=== PATIENT | male | born 1970 | race Caucasian/White ===

== ENCOUNTER 2017-01-26 10:52 | Emergency (ER) | payer BC ==
[~2017-01-26] VITALS: Ht 180.3 cm; Wt 98.0 kg
[2017-01-26 11:45] VITALS: BP 134/61; PULSE 93; RESP 18; TEMP 98.4; O2SAT 94
[2017-01-26] MEDS ORDERED: INHAILER (11:59)
--- NOTE | 2017-01-26 12:11 | PD ---
HPI Chief Complaint: Respiratory Symptoms Time Seen by Provider: 11:49 Travel History International Travel<30 days: No Contact w/Intl Traveler<30days: No Traveled to known affect area: No History of Present Illness HPI This 46-year-old male is complaining of cough for the past week and a half. At times he feels short of breath. He has not noted any fever. He does smoke cigarettes. He has had episodes of coughing which have led to vomiting. He works at [employer] and wears a respirator at work [facility] Past Medical History Asthma: Yes Tetanus Vaccination: < 5 Years Influenza Vaccination: Yes ?: Not Past Surgical History Abdominal Surgery: Yes (UMBILICAL HERNIA REPAIR) Cholecystectomy: Yes Neurologic Surgery: Yes (BRAIN BLEED/SKULL FX) Social History Alcohol Use: Yes (WEEKEND) Tobacco Use: Yes (1 PPD) Substance Use: No Allergies-Medications (Allergen,Severity, Reaction): Coded Allergies: No Known Allergies (Unverified , 01/26/17) Reported Meds & Prescriptions Reported Meds & Active Scripts Active Reported [Inhailer] Review of Systems General / Constitutional: No: Fever, Chills Eyes: No: Diploplia, Blurred Vision HENT: No: Headaches Cardiovascular: No: Chest Pain or Discomfort, Palpitations Respiratory: Positive: Cough, Shortness of Breath Gastrointestinal: Positive: Vomiting, No: Diarrhea Genitourinary: No: Urgency, Frequency Skin: No Rash, No Itching Neurologic: No: Weakness Physical Exam Narrative GENERAL: Well-developed male SKIN: Focused skin assessment warm/dry. HEAD: Atraumatic. Normocephalic. EYES: Pupils equal and round. No scleral icterus. No injection or drainage. ENT: No nasal bleeding or discharge. Mucous membranes pink and moist. NECK: Trachea midline. No JVD. CARDIOVASCULAR: Regular rate and rhythm. No murmur appreciated. RESPIRATORY: No accessory muscle use. There are occasional rhonchi and wheezes Breath sounds equal bilaterally. He is having paroxysms of severe cough GASTROINTESTINAL: Abdomen soft, non-tender, nondistended. Hepatic and splenic margins not palpable. MUSCULOSKELETAL: No obvious deformities. No clubbing. No cyanosis. No edema. NEUROLOGICAL: Awake and alert. No obvious cranial nerve deficits. Motor grossly within normal limits. Normal speech. PSYCHIATRIC: Appropriate mood and affect; insight and judgment normal. Data Data Last Documented VS Vital Signs Date Time Temp Pulse Resp B/P (MAP) Pulse Ox O2 Delivery O2 Flow Rate FiO2 01/26/17 11:55 90 96 Room Air 01/26/17 11:45 98.4 18 134/61 (85) Orders Orders Chest, Pa & Lat (01/26/17 12:08) Albuterol-Ipratropium Neb (Duoneb Neb) (01/26/17 12:15) MDM Medical Decision Making Medical Screen Exam Complete: Yes Emergency Medical Condition: Yes Medical Record Reviewed: Yes Differential Diagnosis Differential includes acute bronchitis, COPD, pneumonia Narrative Course He was given a nebulizer and this seemed to provide some relief of his cough. Chest x-ray is read as negative. The released on amoxicillin and Tessalon Perles. Impression acute bronchitis. Recommended that he try to stop smoking view of his occupational exposure. Diagnosis Primary Impression: Acute bronchitis Qualified Codes: J20.9 - Acute bronchitis, unspecified Scripts Benzonatate (Tessalon Perles) 100 Mg Cap 200 MG PO TID Y for COUGH, #20 CAP 0 Refills Prov: Sumeet Chen MD 01/26/17 Amoxicillin (Amoxicillin) 500 Mg Cap 500 MG PO TID for Infection for 10 Days, CAP 0 Refills Prov: Sumeet Chen MD 01/26/17 Disposition: 01 DISCHARGE HOME Condition: Stable Sumeet Chen MD Jan 26, 2017 12:10
[2017-01-26] MEDS ORDERED: RESP: ALBUTEROL 2.5 MG/IPRATROPIUM 0.5 MG NEB (SCH) NEB ONE (12:15)
--- NOTE | 2017-01-26 13:33 | RADRPT ---
EXAM DATE/TIME: 01/26/2017 12:57 [facility] COMPARISON: No previous studies available for comparison. INDICATIONS : Cough. Difficulty breathing for a week and a half. MEDICAL HISTORY : Skull fracture w/ cranial bleed. Asthma. Smoker SURGICAL HISTORY : Cholecystectomy. Umbilical hernia repair. Lumbar spine. ENCOUNTER: Initial ACUITY: 2 weeks PAIN SCORE: 0/10 LOCATION: chest FINDINGS: PA and lateral views of the chest demonstrate the lungs to be symmetrically aerated without evidence of mass, infiltrate or effusion. The cardiomediastinal contours are unremarkable. Osseous structure s are intact. CONCLUSION: No acute cardiopulmonary disease. Miles Cazares MD on January 26, 2017 at 13:31 Board Certified Radiologist. This report was verified electronically.
[2017-01-26] MEDS ORDERED: AMOX500C PO (13:40)
[2017-01-26] MEDS ORDERED: BENZ100 PO (13:40)
[2017-01-26 14:04] VITALS: BP 145/79
== END 2017-01-26 14:09 | disposition home or self-care (01) ==
LOC: PHED 10:52
DX: J20.9 Acute bronchitis, unspecified (principal); F17.210 Nicotine dependence, cigarettes, uncomplicated
CPT/HCPCS: 71020; 94640; 94664; 99284

== ENCOUNTER 2017-06-22 18:20 | Emergency (ER) | payer OTHER, BC ==
[~2017-06-22] VITALS: Ht 180.3 cm; Wt 96.5 kg
[~2017-06-22 18:20] MED LIST: AMOX500C PO; BENZ100 PO; INHAILER
[2017-06-22 18:22] VITALS: BP 151/117; PULSE 77; RESP 18; TEMP 99.4; O2SAT 99
[2017-06-22] MEDS ORDERED: MORPHINE SULFATE 4 MG/ML INJ IM ONE (18:45)
[2017-06-22] MEDS ORDERED: ONDANSETRON HCL 4 MG/2 ML VIAL IM ONE (18:45)
--- NOTE | 2017-06-22 18:46 | PD ---
HPI Chief Complaint: Pain: Acute or Chronic Time Seen by Provider: 18:34 Travel History International Travel<30 days: No Contact w/Intl Traveler<30days: No Traveled to known affect area: No History of Present Illness HPI This patient complains of pain in his right groin. He had a slip and fall injury at work which caused the pain. Duration 5 hours. Severity is moderate. Worse when he moves his right leg. He is ambulatory. 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 There is no direct trauma involved. PFSH Past Medical History Asthma: Yes Tetanus Vaccination: < 5 Years Influenza Vaccination: Yes ?: Not Past Surgical History Abdominal Surgery: Yes (UMBILICAL HERNIA REPAIR) Cholecystectomy: Yes Neurologic Surgery: Yes (BRAIN BLEED/SKULL FX) Social History Alcohol Use: Yes (WEEKENDS) Tobacco Use: Yes (1 PPD) Substance Use: No Allergies-Medications (Allergen,Severity, Reaction): Coded Allergies: No Known Allergies (Verified Allergy, Unknown, 06/22/17) Reported Meds & Prescriptions Reported Meds & Active Scripts Active Review of Systems General / Constitutional: No: Fever Eyes: No: Visual changes HENT: No: Headaches Cardiovascular: No: Chest Pain or Discomfort Respiratory: No: Shortness of Breath Gastrointestinal: No: Abdominal Pain Genitourinary: No: Dysuria Musculoskeletal: Positive: Pain Skin: No Rash Neurologic: No: Weakness Psychiatric: No: Depression Endocrine: No: Polydipsia Hematologic/Lymphatic: No: Easy Bruising Physical Exam Narrative GENERAL: Well-nourished, well-developed patient with right groin pain . SKIN: Focused skin assessment reveals no rash and nodules. Skin is Warm and dry. HEAD: Atraumatic. Normocephalic. EYES: Pupils equal and round. No scleral icterus. No injection or drainage. ENT: No nasal bleeding or discharge. Mucous membranes pink and moist. NECK: Trachea midline. No JVD. CARDIOVASCULAR: Regular rate and rhythm. No murmur appreciated. RESPIRATORY: No accessory muscle use. Clear to auscultation. Breath sounds equal bilaterally. GASTROINTESTINAL: Abdomen soft, non-tender, nondistended. Hepatic and splenic margins not palpable. MUSCULOSKELETAL: No obvious deformities. No clubbing. No cyanosis. No edema. NEUROLOGICAL: Awake and alert. No obvious cranial nerve deficits. Motor grossly within normal limits. Normal speech. PSYCHIATRIC: Appropriate mood and affect; insight and judgment normal. Groin: There is no bruising or swelling or erythema or warmth. The mid right inguinal ligament areas tender. There is no hernia noted. exam is normal without hernia Data Data Last Documented VS Vital Signs Date Time Temp Pulse Resp B/P (MAP) Pulse Ox O2 Delivery O2 Flow Rate FiO2 06/22/17 19:00 73 16 134/79 (97) 96 Room Air 06/22/17 18:22 99.4 Orders Orders Pelvis, Ap Only (Routine) (06/22/17 ) Ondansetron Inj (Zofran Inj) (06/22/17 18:45) Morphine Inj (Morphine Inj) (06/22/17 18:45) MDM Medical Decision Making Medical Screen Exam Complete: Yes Emergency Medical Condition: Yes Medical Record Reviewed: Yes Differential Diagnosis Groin strain, inguinal ligament tear, hernia, pelvic fracture Narrative Course I have reviewed the patient's electronic medical record. I reviewed his pelvis x-ray is negative for fracture I gave him injection of morphine and Zofran for symptom relief No hernia found on exam Wrote him a dozen tramadol Recommend Worker's Comp. follow-up Diagnosis Primary Impression: Strain of muscle of right groin region Additional Instructions: The patient was advised to follow up with their Worker's Comp. physician and return if they worsen. The patient was warned about potential sedation for the medications they will receive on prescription. Med/Other Pt SpecificInfo: Prescription(s) given Scripts Tramadol (Tramadol) 50 Mg Tab 50 MG PO Q6H Y for PAIN, #12 TAB 0 Refills Prov: Matt Montano MD 06/22/17 Disposition: 01 DISCHARGE HOME Condition: Stable Matt Montano MD Jun 22, 2017 18:46
[2017-06-22 19:00] VITALS: BP 134/79; PULSE 73; RESP 16; O2SAT 96
[2017-06-22] MEDS ORDERED: TRAM50TA PO (19:45)
[2017-06-22 20:00] VITALS: BP 145/95; PULSE 84; RESP 16; O2SAT 95
--- NOTE | 2017-06-22 20:12 | RADRPT ---
EXAM DATE/TIME: 06/22/2017 19:25 [facility] COMPARISON: No previous studies available for comparison. INDICATIONS : Groin pain. Patient states he pulled a muscle. MEDICAL HISTORY : None. SURGICAL HISTORY : None. ENCOUNTER: Initial ACUITY: 1 day PAIN SCORE: 6/10 LOCATION: pelvis. FINDINGS: A single frontal view of the pelvis demonstrates no evidence of fracture. The bony pelvic ring is in tact. Bony mineralization is normal. The soft tissues are intact. CONCLUSION: 1. No acute findings. Harinder Ordonez MD on June 22, 2017 at 20:08 Board Certified Radiologist. This report was verified electronically.
== END 2017-06-22 20:10 | disposition home or self-care (01) ==
LOC: PHED 18:20
DX: S39.011A Strain of muscle, fascia and tendon of abdomen, initial encounter (principal); F17.200 Nicotine dependence, unspecified, uncomplicated; Z87.09 Personal history of other diseases of the respiratory system; W01.0XXA Fall on same level from slipping, tripping and stumbling without subsequent striking against object, initial encounter; Y92.814 Boat as the place of occurrence of the external cause; Y99.0 Civilian activity done for income or pay
CPT/HCPCS: 72170; 96372; 99283; J2270; J2405

== ENCOUNTER 2017-07-13 19:11 | Emergency (ER) | payer BC, OTHER ==
[~2017-07-13] VITALS: Ht 180.3 cm; Wt 102.4 kg
[~2017-07-13 19:11] MED LIST changes: -AMOX500C PO; -BENZ100 PO; -INHAILER; +TRAM50TA PO
[2017-07-13 19:17] VITALS: BP 147/78; PULSE 112; RESP 18; TEMP 99.2; O2SAT 97
[2017-07-13] MEDS ORDERED: PRED10 PO (19:43)
--- NOTE | 2017-07-13 19:58 | PD ---
HPI Chief Complaint: Pain: Acute or Chronic Time Seen by Provider: 19:30 Travel History International Travel<30 days: No Contact w/Intl Traveler<30days: No Traveled to known affect area: No History of Present Illness HPI 47-year-old male presents emergency department for evaluation of right groin pain that he said began June 30. States that he slipped and performed a split at work June 30 and has been a Worker's Comp. case since then. Patient says he was sent to urgent care for evaluation and then subsequently was sent to [facility] for a CT scan. Says he had an x-ray here at the hospital that ruled out fracture, the patient continued to have pain. Patient says he continues to have pain for 3 weeks. Says he has pain with sitting, standing and at work. Says his right groin feels like he tore a muscle. States he would like some pain medication to help alleviate his pain. Says the pain is moderate to severe in severity, increases with movement. Says the pain radiates from his lateral groin to his medial aspect of the groin. Patient denies any illicit or otherwise drug use. Denies any subsequent falls. Patient also asked for a work. [facility] Past Medical History Asthma: Yes Diminished Hearing: No Tetanus Vaccination: < 5 Years Influenza Vaccination: No Past Surgical History Abdominal Surgery: Yes (UMBILICAL HERNIA REPAIR) Cholecystectomy: Yes Neurologic Surgery: Yes (BRAIN BLEED/SKULL FX) Social History Alcohol Use: Yes (WEEKENDS) Tobacco Use: Yes (1 PPD) Substance Use: No Allergies-Medications (Allergen,Severity, Reaction): Coded Allergies: No Known Allergies (Verified Allergy, Unknown, 07/13/17) Reported Meds & Prescriptions Reported Meds & Active Scripts Active Ibuprofen 800 Mg Tab 800 Mg PO Q8H PRN 5 Days Robaxin (Methocarbamol) 500 Mg Tab 500 Mg PO TID 7 Days Reported Prednisone 10 Mg Tab 10 Mg PO DAILY Review of Systems Except as stated in HPI: all other systems reviewed are Neg Physical Exam Narrative GENERAL: Well-nourished, well-developed patient. SKIN: Focused skin assessment warm/dry. HEAD: Normocephalic. EYES: No scleral icterus. No injection or drainage. NECK: Supple, trachea midline. No JVD or lymphadenopathy. No midline tenderness CARDIOVASCULAR: Regular rate and rhythm without murmurs, gallops, or rubs. RESPIRATORY: Breath sounds equal bilaterally. No accessory muscle use. GASTROINTESTINAL: Abdomen soft, non-tender, nondistended. Protuberant abdomen MUSCULOSKELETAL: No cyanosis, or edema. Right inguinal region-no edema, no erythema, no masses. Right hip nontender to palpation BACK: Nontender without obvious deformity. No CVA tenderness. Data Data Last Documented VS Vital Signs Date Time Temp Pulse Resp B/P (MAP) Pulse Ox O2 Delivery O2 Flow Rate FiO2 07/13/17 19:17 99.2 112 18 147/78 (101) 97 Orders Orders Ed Discharge Order (07/13/17 20:14) MDM Medical Decision Making Medical Screen Exam Complete: Yes Emergency Medical Condition: Yes Differential Diagnosis Right hip fracture, groin strain, hernia Narrative Course 47-year-old male presents emergency department for evaluation of right groin pain that he said began June 30. States that he slipped and performed a split at work June 30 and has been a Worker's Comp. case since then. Patient says he was sent to urgent care for evaluation and then subsequently was sent to [facility] for a CT scan. Says he had an x-ray here at the hospital that ruled out fracture, the patient continued to have pain. Patient says he continues to have pain for 3 weeks. Says he has pain with sitting, standing and at work. Says his right groin feels like he tore a muscle. States he would like some pain medication to help alleviate his pain. Says the pain is moderate to severe in severity, increases with movement. Says the pain radiates from his lateral groin to his medial aspect of the groin. Patient denies any illicit or otherwise drug use. Denies any subsequent falls. Patient also asked for a work note. Vital signs are stable. Physical exam findings consistent with a groin strain as there are no subjective findings aside from pain to palpation. I Reviewed image from I CT abdomen/pelvis today "CONCLUSION: No acute CT findings in the abdomen or pelvis. No specific explanation for right groin pain. " Reviewed [facility]. Last Rx from 06/22/17 for Tramadol, written in the ED, consistent with a note here at [facility]. Advised patient that his CT of abdomen pelvis performed today was fairly normal. Advised the patient likely requires muscle relaxers and pain medications were not necessary indicated. Patient was appreciative of his care today. He is advised to follow-up with his case management and Worker's Compensation cases. Patient states understanding and will comply. I did give patient a few days off to allow rest of the groin. If symptoms persist or worsen he is advised to return to the emergency department. Diagnosis Primary Impression: Groin strain Qualified Codes: S76.211D - Strain of adductor muscle, fascia and tendon of right thigh, subsequent encounter Referrals: Primary Care Physician Departure Forms: Tests/Procedures, Work Release Enter return to work date: Jul 16, 2017 Special Instructions: Please allow a few days off to rest the injury. Continue light duty until cleared by physician, workers compensation case is resolved, or until symptoms improve. Additional Instructions: Follow up with your primary care physician. Scripts Ibuprofen (Ibuprofen) 800 Mg Tab 800 MG PO Q8H Y for Pain/Inflammation for 5 Days, #15 TAB 0 Refills Prov: Matt Montano MD 07/13/17 Methocarbamol (Robaxin) 500 Mg Tab 500 MG PO TID for Muscle Spasm for 7 Days, TAB 0 Refills Prov: Matt Montano MD 07/13/17 Disposition: 01 DISCHARGE HOME Condition: Stable Heidi Arthur Jul 13, 2017 19:58
[2017-07-13] MEDS ORDERED: ROBA500T PO (19:59)
[2017-07-13] MEDS ORDERED: IBUP1TAB7 PO (19:59)
== END 2017-07-13 20:32 | disposition home or self-care (01) ==
LOC: PHEFT 19:11
DX: S39.011A Strain of muscle, fascia and tendon of abdomen, initial encounter (principal); J45.909 Unspecified asthma, uncomplicated; F17.210 Nicotine dependence, cigarettes, uncomplicated; W01.0XXA Fall on same level from slipping, tripping and stumbling without subsequent striking against object, initial encounter; Y99.0 Civilian activity done for income or pay
CPT/HCPCS: 99283

== ENCOUNTER 2017-07-20 08:21 | Emergency (ER) | payer BC ==
[~2017-07-20] VITALS: Ht 180.3 cm; Wt 101.9 kg
[~2017-07-20 08:21] MED LIST changes: +IBUP1TAB7 PO; +PRED10 PO; +ROBA500T PO; -TRAM50TA PO
[2017-07-20 08:32] VITALS: BP 151/107; PULSE 103; RESP 16; TEMP 99.3; O2SAT 98
[2017-07-20] MEDS ORDERED: BACT800T5 PO (09:03)
--- NOTE | 2017-07-20 09:07 | PD ---
HPI Chief Complaint: Cold / Flu Symptoms Time Seen by Provider: 08:56 Travel History International Travel<30 days: No Contact w/Intl Traveler<30days: No Traveled to known affect area: No History of Present Illness HPI 47-year-old male presents emergency department complaint of nonproductive cough , congestion and left-sided sinus pressure for approximately 3 days. Says that he has had a subjective fever but does not actually think he has a temperature. Cough has been nonproductive. Says he feels fullness of his sinuses. Says he has taken OTC ibuprofen without relief. Patient says he has not seen his primary care physician because he would not be able to get in with him until Wednesday or Wednesday. Patient says he decided to come to the emergency department today because he had a headache over the last 2 days that has not been resolved with ibuprofen. He has not tried any other medications. PFSH Past Medical History Asthma: Yes Diminished Hearing: No Tetanus Vaccination: < 5 Years Influenza Vaccination: No Past Surgical History Abdominal Surgery: Yes (UMBILICAL HERNIA REPAIR) Cholecystectomy: Yes Neurologic Surgery: Yes (BRAIN BLEED/SKULL FX) Social History Alcohol Use: Yes (occas weekends beer) Tobacco Use: Yes (1 PPD) Substance Use: No Allergies-Medications (Allergen,Severity, Reaction): Coded Allergies: No Known Allergies (Verified Allergy, Unknown, 07/20/17) Reported Meds & Prescriptions Reported Meds & Active Scripts Active Bactrim DS (Sulfamethoxazole-Trimethoprim) 800-160 Mg Tab 1 Tab PO BID Ibuprofen 800 Mg Tab 800 Mg PO Q8H PRN 5 Days Robaxin (Methocarbamol) 500 Mg Tab 500 Mg PO TID 7 Days Reported Prednisone 10 Mg Tab 10 Mg PO DAILY Review of Systems Except as stated in HPI: all other systems reviewed are Neg Physical Exam Narrative GENERAL: Well-nourished, well-developed patient. SKIN: Focused skin assessment warm/dry. HEAD: Normocephalic. EYES: No scleral icterus. No injection or drainage. Mild tenderness palpation over the left frontal sinuses Pharynx mildly erythematous without exudate. NECK: Supple, trachea midline. No JVD or lymphadenopathy. No meningismus CARDIOVASCULAR: Regular rate and rhythm without murmurs, gallops, or rubs. RESPIRATORY: Breath sounds equal bilaterally. No accessory muscle use. GASTROINTESTINAL: Abdomen soft, non-tender, nondistended. No CVA tenderness MUSCULOSKELETAL: No cyanosis, or edema. BACK: Nontender without obvious deformity. No CVA tenderness. Data Data Last Documented VS Vital Signs Date Time Temp Pulse Resp B/P (MAP) Pulse Ox O2 Delivery O2 Flow Rate FiO2 07/20/17 08:45 16 Room Air 07/20/17 08:32 99.3 103 151/107 (122) 98 Orders Orders Ed Discharge Order (07/20/17 09:07) MDM Medical Decision Making Medical Screen Exam Complete: Yes Emergency Medical Condition: Yes Differential Diagnosis Acute sinusitis, upper respiratory infection, influenza, bronchitis Narrative Course 47-year-old male presents emergency department for sinusitis type symptoms for the last 3 days. Patient says that he has used ibuprofen without relief of his headache decided to come to the emergency department today for evaluation. Vital signs are stable. Exam findings consistent with sinusitis localized to the left frontal sinus. After review of the EMR, the patient just completed a course of prednisone and is concerned about the weight gain. We will avoid prednisone use for now as this is a concern of his. I will prescribe a watch and wait antibiotic as I am unsure if he would actually follow-up with his primary care physician. Advised that he should use [id number] medications such as nasal saline rinse and antihistamines for symptom management. Advised that these do not help within a couple days that he should start the antibiotic. I recommend he follow-up with his primary care physician within 1 week. Patient states understanding will comply. Diagnosis Primary Impression: Acute sinusitis Qualified Codes: J01.10 - Acute frontal sinusitis, unspecified Referrals: Primary Care Physician Additional Instructions: Follow up with your primary care physician within 2-3 days. You have been prescribed an antibiotic however, do not start unless the over the counter medications do not help. I recommend you brick picker zyrtec, claritin, or allergra (generic ok) and take daily, per package instruction. Also, I recommend saline spray for your nasal congestion to assist with drainage. Consider a drop of honey and lemon in water for your nasal drip. Scripts Sulfamethoxazole-Trimethoprim (Bactrim DS) 800-160 Mg Tab 1 TAB PO BID for Infection, #14 TAB 0 Refills Prov: Sumeet Chen MD 07/20/17 Disposition: 01 DISCHARGE HOME Condition: Stable Heidi Arthur Jul 20, 2017 09:06
== END 2017-07-20 09:18 | disposition home or self-care (01) ==
LOC: PHEFT 08:21
DX: J01.10 Acute frontal sinusitis, unspecified (principal); J45.909 Unspecified asthma, uncomplicated; F17.210 Nicotine dependence, cigarettes, uncomplicated
CPT/HCPCS: 99283